=== PATIENT | female | born 1995 | race Two or more races ===

== ENCOUNTER → 2019-01-02 | Outpatient (CLI) | payer BC, OTHER ==
--- NOTE | 2019-01-02 10:28 | KCIC ---
MRI study of the right knee without contrast Clinical indications: Medial right knee pain. Unable to straighten. History of right knee injury while planting the right foot during soccer which occurred 10 days ago. TECHNIQUE: Noncontrast MRI sequences of the right knee were performed in all 3 planes. COMPARISON: Radiographic study of the right knee dated December 30, 2018. FINDINGS: There is a tear of the midportion of the anterior cruciate ligament. There is associated small pivot shift bone marrow contusion of the posterior aspect of the medial tibial plateau. No fracture line is evident. The posterior cruciate ligament is intact. The quadriceps and patellar tendons are intact. No articular surface tear of the medial or lateral meniscus is seen. The medial collateral ligament is intact and no meniscocapsular separation is seen. The lateral collateral ligament complex and iliotibial band and popliteus tendon are intact. No posterior lateral corner injury is seen. No focal osteochondral abnormality of the medial or lateral tibiofemoral joint compartments is seen. The patella is normally aligned. No focal osteochondral abnormality of the patellofemoral joint compartment is seen. The medial and lateral retinacular ligaments are intact. No Altamirano's cyst is seen. Small knee joint effusion is evident. No loose osteochondral body is seen. No muscle edema is evident. IMPRESSION: ACL tear with associated small pivot shift bone marrow contusion of the posterior medial tibial plateau. No meniscal tear. Electronically signed by: Vladimir Munoz MD (01/02/2019 10:25 AM) [id number]
== END | disposition home or self-care (01) ==
LOC: KCIC MRI 08:12
PROVIDERS: ATTEND Orthopaedic Surgery
DX: S83.511A Sprain of anterior cruciate ligament of right knee, initial encounter (principal); M25.461 Effusion, right knee; X58.XXXA Exposure to other specified factors, initial encounter; Y93.89 Activity, other specified; Y92.89 Other specified places as the place of occurrence of the external cause; Y99.8 Other external cause status
CPT/HCPCS: 73721